=== PATIENT | female | born 1980 | race Caucasian/White ===

== ENCOUNTER 2016-11-03 05:24 | Inpatient (IN) | payer BC, MEDICAID, SELFPAY ==
[~2016-11-03] VITALS: Ht 170.2 cm; Wt 92.8 kg
[2016-11-03] MEDS ORDERED: ONDANSETRON 2MG/ML, 2ML IVPush ONE (05:30)
[2016-11-03] MEDS ORDERED: SODIUM CHLORIDE 0.9% 1,000ML IVBOLUS ONE (05:30)
[2016-11-03] MEDS ORDERED: FAMOTIDINE 20 MG/2 ML IVP ONE (05:30)
[2016-11-03] MEDS ORDERED: SODIUM CHLORIDE FLUSH 10ML SYR IVF ONE (05:30)
[2016-11-03] MEDS ORDERED: ONDANSETRON 2MG/ML, 2ML ONE (05:40)
[2016-11-03] MEDS ORDERED: FAMOTIDINE 20 MG/2 ML ONE (05:40)
[2016-11-03] MEDS ORDERED: LORazepam 2 MG/ML, 1ML ONE (05:58)
[2016-11-03] MEDS ORDERED: PLEASE ENTER ALLERGIES MC SCH ×2 (06:00)
[2016-11-03 06:10] LABS: ASPARTATE AMINO TRANSFERASE 35 U/L (15-37); BLOOD UREA NITROGEN 12 mg/dL (7-18)
[2016-11-03] MEDS ORDERED: MORPHINE SULFATE 4 MG/ML, 1ML ONE ×3 (06:27→08:57)
[2016-11-03] MEDS: MORPHINE SULFATE 4 MG/ML, 1ML IVPush PRN ×2 (06:33→07:07)
[2016-11-03] MEDS ORDERED: SODIUM CHLORIDE 0.9% 1,000 ML IV ONE (06:37)
[2016-11-03] MEDS ORDERED: SODIUM CHLORIDE FLUSH 10ML SYR IVF PRN (07:00)
[2016-11-03] MEDS ORDERED: HYDROmorphone 1 MG/ML, 1ML IVPush ONE (07:30)
[2016-11-03] MEDS ORDERED: HYDROmorphone 1 MG/ML, 1ML ONE (07:32)
[2016-11-03] MEDS: morphine SULFATE 10 MG/ML, 1ML IVPush PRN (08:59)
[2016-11-03] MEDS ORDERED: ACETAMINOPHEN 325 MG TABLET PO PRN (10:30)
[2016-11-03] MEDS ORDERED: POLYETHYLENE GLYCOL 17 GM PACKET PO PRN (10:30)
[2016-11-03] MEDS ORDERED: POTASSIUM CHLORIDE 40 MEQ in SODIUM CHLORIDE 0.9% 500 ML IV ONE (10:30)
[2016-11-03] MEDS ORDERED: DOCUSATE 100 MG CAPSULE PO PRN (10:30)
[2016-11-03] MEDS ORDERED: BISACODYL 10 MG SUPP PR PRN (10:30)
[2016-11-03] MEDS: PROMETHAZINE 25 MG/ML, 1ML IM PRN ×4 (10:52→21:31)
[2016-11-03] MEDS: HEPARIN 5,000 UNITS/ML, 1ML SQ SCH ×2 (11:14→20:19)
[2016-11-03] MEDS: NS + 20MEQ KCL 1,000 ML IV SCH ×2 (11:14→16:05)
[2016-11-03] MEDS ORDERED: POTASSIUM PHOSPHATE 44 MEQ in SODIUM CHLORIDE 0.9% 500 ML IV ONE (12:00)
[2016-11-03] MEDS ORDERED: MAGNESIUM SULFATE PMX 2GM/50ML 50 ML IV ONE (12:00)
[2016-11-03] MEDS: KETOROLAC 30 MG/1 ML IVPush PRN ×2 (12:57→19:38)
[2016-11-03 14:04] VITALS: BP 139/89
[2016-11-03] MEDS: ONDANSETRON 2MG/ML, 2ML IVPush PRN (15:43)
[2016-11-03 19:00] VITALS: BP 114/85
[2016-11-03] MEDS: NICOTINE 14MG/24 HR PATCH.TD24 TD SCH (20:18)
[2016-11-04 01:05] VITALS: BP 127/87
[2016-11-04] MEDS: ONDANSETRON 2MG/ML, 2ML IVPush PRN ×3 (01:08→17:50)
[2016-11-04] MEDS: HEPARIN 5,000 UNITS/ML, 1ML SQ SCH ×3 (04:47→17:16)
[2016-11-04] MEDS: KETOROLAC 30 MG/1 ML IVPush PRN ×4 (04:47→21:48)
[2016-11-04 05:21] LABS: ASPARTATE AMINO TRANSFERASE 23 U/L (15-37); BLOOD UREA NITROGEN 14 mg/dL (7-18)
[2016-11-04 07:40] VITALS: BP 117/80
[2016-11-04] MEDS: SODIUM CHLORIDE 0.9% 1,000 ML IV SCH (12:02)
[2016-11-04 14:39] VITALS: BP 127/90
[2016-11-04] MEDS: morphine SULFATE 10 MG/ML, 1ML IVPush PRN (17:46)
[2016-11-04 19:31] VITALS: BP 123/75
[2016-11-04] MEDS: NICOTINE 14MG/24 HR PATCH.TD24 TD SCH (20:30)
[2016-11-04] MEDS: PROMETHAZINE 25 MG/ML, 1ML IM PRN (21:07)
[2016-11-05 01:26] VITALS: BP 122/84
[2016-11-05] MEDS: morphine SULFATE 10 MG/ML, 1ML IVPush PRN ×4 (01:56→19:58)
[2016-11-05] MEDS: SODIUM CHLORIDE 0.9% 1,000 ML IV SCH ×5 (03:28→22:36)
[2016-11-05] MEDS: HEPARIN 5,000 UNITS/ML, 1ML SQ SCH ×3 (03:28→19:00)
[2016-11-05] MEDS: KETOROLAC 30 MG/1 ML IVPush PRN ×3 (03:28→22:37)
[2016-11-05] MEDS: PROMETHAZINE 25 MG/ML, 1ML IM PRN ×2 (05:33→10:12)
[2016-11-05 06:08] VITALS: BP 132/84
[2016-11-05] MEDS: ONDANSETRON 2MG/ML, 2ML IVPush PRN ×3 (06:14→19:55)
[2016-11-05 08:36] VITALS: BP 135/92
[2016-11-05 15:10] VITALS: BP 131/91
[2016-11-05 19:53] VITALS: BP 113/80
[2016-11-05] MEDS: NICOTINE 14MG/24 HR PATCH.TD24 TD SCH (22:38)
[2016-11-06] MEDS: PROMETHAZINE 25 MG/ML, 1ML IM PRN (00:48)
[2016-11-06] MEDS: morphine SULFATE 10 MG/ML, 1ML IVPush PRN ×3 (01:39→10:42)
[2016-11-06] MEDS: ONDANSETRON 2MG/ML, 2ML IVPush PRN ×2 (01:41→10:41)
[2016-11-06] MEDS: HEPARIN 5,000 UNITS/ML, 1ML SQ SCH ×3 (03:00→13:41)
[2016-11-06 03:45] VITALS: BP 101/66
[2016-11-06] MEDS: SODIUM CHLORIDE 0.9% 1,000 ML IV SCH ×3 (05:43→21:43)
[2016-11-06 05:57] LABS: ASPARTATE AMINO TRANSFERASE 19 U/L (15-37); BLOOD UREA NITROGEN 15 mg/dL (7-18)
[2016-11-06 09:33] VITALS: BP 136/95
[2016-11-06 15:55] VITALS: BP 121/85
[2016-11-06 20:02] VITALS: BP 103/74
[2016-11-06] MEDS: NICOTINE 14MG/24 HR PATCH.TD24 TD SCH (20:11)
[2016-11-07] MEDS: HEPARIN 5,000 UNITS/ML, 1ML SQ SCH ×3 (02:07→18:40)
[2016-11-07 02:15] VITALS: BP 118/85
[2016-11-07] MEDS: SODIUM CHLORIDE 0.9% 1,000 ML IV SCH ×2 (05:07→12:55)
[2016-11-07 07:10] VITALS: BP 122/84
[2016-11-07] MEDS: ONDANSETRON 2MG/ML, 2ML IVPush PRN (07:45)
[2016-11-07] MEDS: morphine SULFATE 10 MG/ML, 1ML IVPush PRN (07:46)
[2016-11-07] MEDS: PROMETHAZINE 25 MG/ML, 1ML IM PRN (09:26)
[2016-11-07 14:31] VITALS: BP 113/76
== END 2016-11-07 19:40 | disposition left against medical advice (07) | DRG 440 ==
LOC: ED 05:58 → EDIP 06:37 → 3NW 07:48 → 4NOR 11-05 05:49
PROVIDERS: ADMIT Family Medicine; ATTEND Family Medicine
DX: K85.20 Alcohol induced acute pancreatitis without necrosis or infection (principal); F17.210 Nicotine dependence, cigarettes, uncomplicated; E87.6 Hypokalemia; Z88.1 Allergy status to other antibiotic agents; F10.20 Alcohol dependence, uncomplicated
CPT/HCPCS: 36415; 76700; 80053; 80061; 80307; 81001; 82607; 82746; 83690; 83735; 84100; 84443; 84703; 85025; 96361; 96374; 96375; 96376; J1170; J1644; J1885; J2405; J2550; J3480; J2270; J3475; J7030; J7040; S0028

== ENCOUNTER 2016-11-24 20:17 | Emergency (ER) | payer SELFPAY ==
[~2016-11-24] VITALS: Ht 167.6 cm; Wt 88.0 kg
[2016-11-24] MEDS ORDERED: SODIUM CHLORIDE 0.9% 1,000ML IVBOLUS ONE (20:30)
[2016-11-24] MEDS ORDERED: ONDANSETRON 2MG/ML, 2ML IVPush ONE (20:30)
[2016-11-24] MEDS ORDERED: SODIUM CHLORIDE FLUSH 10ML SYR IVF ONE (20:30)
[2016-11-24 20:49] LABS: BLOOD UREA NITROGEN 9 mg/dL (7-18)
[2016-11-24] MEDS ORDERED: ONDANSETRON 2MG/ML, 2ML ONE (20:51)
[2016-11-24 20:55] LABS: ASPARTATE AMINO TRANSFERASE 29 U/L (15-37)
[2016-11-24] MEDS ORDERED: MAALOX/HYOSCYAMINE/LIDOCAINE 45 ML BOTTLE ONE (21:12)
[2016-11-24] MEDS ORDERED: MORPHINE SULFATE 4 MG/ML, 1ML ONE (21:12)
[2016-11-24] MEDS ORDERED: KETOROLAC 30 MG/1 ML ONE (21:20)
[2016-11-24] MEDS ORDERED: MAALOX/HYOSCYAMINE/LIDOCAINE 45 ML BOTTLE PO ONE (21:30)
[2016-11-24] MEDS ORDERED: MORPHINE SULFATE 4 MG/ML, 1ML IVPush PRN (21:30)
[2016-11-24] MEDS ORDERED: KETOROLAC 30 MG/1 ML IM ONE (21:30)
[2016-11-24 21:52] VITALS: BP 125/85
== END 2016-11-24 21:57 | disposition home or self-care (01) ==
LOC: ED 21:00
DX: K29.20 Alcoholic gastritis without bleeding (principal)
CPT/HCPCS: 36415; 80053; 83690; 84703; 85025; 85610; 96361; 96372; 96374; 99284; J1885; J2405; J7030

== ENCOUNTER 2016-12-31 13:36 | Inpatient (IN) | payer OTHER ==
[~2016-12-31] VITALS: Ht 167.6 cm; Wt 88.7 kg
[2016-12-31] MEDS ORDERED: HYDROmorphone 1 MG/ML, 1ML ONE ×2 (15:42→16:21)
[2016-12-31] MEDS ORDERED: ONDANSETRON 2MG/ML, 2ML ONE (15:42)
[2016-12-31] MEDS ORDERED: FAMOTIDINE 20 MG/2 ML ONE (15:42)
[2016-12-31] MEDS: HYDROmorphone 1 MG/ML, 1ML IVPush PRN ×2 (15:43→16:22)
[2016-12-31 16:00] LABS: HEMATOCRIT 41.4 % (34.6-47.8); HEMOGLOBIN 13.8 g/dL (11.7-16.4)
[2016-12-31] MEDS ORDERED: ONDANSETRON 2MG/ML, 2ML IVPush ONE (16:00)
[2016-12-31] MEDS ORDERED: FAMOTIDINE 20 MG/2 ML IVP ONE (16:00)
[2016-12-31] MEDS ORDERED: SODIUM CHLORIDE 0.9% 1,000ML IVBOLUS ONE (16:00)
[2016-12-31] MEDS ORDERED: SODIUM CHLORIDE FLUSH 10ML SYR IVF ONE (16:00)
[2016-12-31 16:13] LABS: ASPARTATE AMINO TRANSFERASE 33 U/L (15-37); BLOOD UREA NITROGEN 14 mg/dL (7-18)
[2016-12-31 16:29] LABS: DIFF TOTAL CELLS COUNTED 100 CELL DIFF
[2016-12-31 16:32] LABS: VERIFY COUNTS? YES
[2016-12-31] MEDS ORDERED: LABETALOL 5MG/ML, 20ML IVPush PRN (17:30)
[2016-12-31] MEDS ORDERED: ENALAPRILAT 1.25 MG/ML, 2ML IVPush PRN (17:30)
[2016-12-31] MEDS ORDERED: ENOXAPARIN 40 MG/0.4 ML ONE (18:02)
[2016-12-31] MEDS: ENOXAPARIN 40 MG/0.4 ML SQ SCH (18:03)
[2016-12-31] MEDS ORDERED: OMNIPAQUE 350 MG/ML, 100ML BOTTLE ONE (18:41)
[2016-12-31] MEDS: morphine SULFATE 10 MG/ML, 1ML IVPush PRN ×2 (18:51→22:34)
[2016-12-31] MEDS: PROMETHAZINE 25 MG SUPP PR PRN (18:51)
[2016-12-31] MEDS: NICOTINE 7 MG/24 HR PATCH.TD24 TD SCH (20:05)
[2016-12-31] MEDS: SODIUM CHLORIDE 0.9% 1,000 ML IV SCH (20:05)
[2016-12-31 20:11] VITALS: BP_SYST 137
[2016-12-31] MEDS: HYDROmorphone 2 MG/ML, 1ML IVPush PRN (21:02)
[2016-12-31] MEDS: ONDANSETRON 2MG/ML, 2ML IVPush PRN (22:34)
[2017-01-01] MEDS: HYDROmorphone 2 MG/ML, 1ML IVPush PRN ×6 (00:15→23:11)
[2017-01-01] MEDS: SODIUM CHLORIDE 0.9% 1,000 ML IV SCH ×5 (00:26→20:43)
[2017-01-01 00:38] VITALS: BP 146/85
[2017-01-01] MEDS: morphine SULFATE 10 MG/ML, 1ML IVPush PRN ×5 (01:30→20:42)
[2017-01-01] MEDS: LORazepam 2 MG/ML, 1ML IVPush PRN ×2 (01:30→05:45)
[2017-01-01] MEDS: PROMETHAZINE 25 MG SUPP PR PRN (03:06)
[2017-01-01 05:35] LABS: HEMATOCRIT 38.7 % (34.6-47.8); HEMOGLOBIN 12.9 g/dL (11.7-16.4); WHITE BLOOD COUNT 13.7 x10^3/uL (3.4-10)
[2017-01-01 05:51] LABS: ASPARTATE AMINO TRANSFERASE 18 U/L (15-37); BLOOD UREA NITROGEN 11 mg/dL (7-18)
[2017-01-01 06:22] LABS: DIFF TOTAL CELLS COUNTED 100 CELL DIFF
[2017-01-01 06:28] LABS: VERIFY COUNTS? YES
[2017-01-01 07:35] VITALS: BP 137/91
[2017-01-01] MEDS ORDERED: MORPHINE SULFATE 4 MG/ML, 1ML ONE ×2 (09:21→15:35)
[2017-01-01] MEDS ORDERED: MAGNESIUM SULFATE PMX 2GM/50ML 50 ML IV ONE (09:30)
[2017-01-01] MEDS: ONDANSETRON 2MG/ML, 2ML IVPush PRN ×2 (11:32→20:42)
[2017-01-01 12:32] VITALS: BP 125/83
[2017-01-01] MEDS: ENOXAPARIN 40 MG/0.4 ML SQ SCH (17:39)
[2017-01-01] MEDS: NICOTINE 7 MG/24 HR PATCH.TD24 TD SCH (17:39)
[2017-01-01 19:57] VITALS: BP 118/80
[2017-01-02 01:45] VITALS: BP 124/87
[2017-01-02] MEDS: SODIUM CHLORIDE 0.9% 1,000 ML IV SCH ×2 (01:47→07:15)
[2017-01-02] MEDS: morphine SULFATE 10 MG/ML, 1ML IVPush PRN ×2 (01:47→05:01)
[2017-01-02 04:36] LABS: HEMATOCRIT 35.3 % (34.6-47.8); HEMOGLOBIN 11.9 g/dL (11.7-16.4); WHITE BLOOD COUNT 12.3 x10^3/uL (3.4-10)
[2017-01-02 04:42] LABS: BLOOD UREA NITROGEN 7 mg/dL (7-18)
[2017-01-02 04:45] LABS: ASPARTATE AMINO TRANSFERASE 16 U/L (15-37)
[2017-01-02] MEDS: ONDANSETRON 2MG/ML, 2ML IVPush PRN ×3 (05:01→17:12)
[2017-01-02 08:00] VITALS: BP 134/87
[2017-01-02] MEDS: HYDROmorphone 2 MG/ML, 1ML IVPush PRN ×5 (08:41→21:53)
[2017-01-02] MEDS ORDERED: CALCIUM GLUCONATE 9.2 MEQ in SODIUM CHLORIDE 0.9% 100 ML IV ONE (10:00)
[2017-01-02] MEDS: LACTATED RINGERS 1,000 ML IV SCH ×3 (11:16→23:56)
[2017-01-02 12:37] VITALS: BP 134/84
[2017-01-02] MEDS: NICOTINE 7 MG/24 HR PATCH.TD24 TD SCH (17:13)
[2017-01-02] MEDS: ENOXAPARIN 40 MG/0.4 ML SQ SCH (17:13)
[2017-01-02 18:46] VITALS: BP 122/83
[2017-01-02] MEDS: PROMETHAZINE 25 MG SUPP PR PRN (21:53)
[2017-01-03] MEDS: HYDROmorphone 2 MG/ML, 1ML IVPush PRN ×3 (01:02→08:09)
[2017-01-03 02:00] VITALS: BP 133/81
[2017-01-03] MEDS: ONDANSETRON 2MG/ML, 2ML IVPush PRN ×3 (04:39→20:29)
[2017-01-03 05:40] LABS: HEMATOCRIT 33.6 % (34.6-47.8); HEMOGLOBIN 11.5 g/dL (11.7-16.4); WHITE BLOOD COUNT 12.4 x10^3/uL (3.4-10)
[2017-01-03 06:11] LABS: ASPARTATE AMINO TRANSFERASE 20 U/L (15-37); BLOOD UREA NITROGEN 4 mg/dL (7-18)
[2017-01-03] MEDS: LACTATED RINGERS 1,000 ML IV SCH ×3 (06:27→20:24)
[2017-01-03 07:08] VITALS: BP 115/78
[2017-01-03] MEDS: morphine SULFATE 10 MG/ML, 1ML IVPush PRN ×4 (11:35→21:15)
[2017-01-03 12:15] VITALS: BP 128/78
[2017-01-03] MEDS: ENOXAPARIN 40 MG/0.4 ML SQ SCH (17:48)
[2017-01-03] MEDS: NICOTINE 7 MG/24 HR PATCH.TD24 TD SCH (17:48)
[2017-01-03 20:00] VITALS: BP 123/82
[2017-01-03] MEDS: PROMETHAZINE 25 MG SUPP PR PRN (22:05)
[2017-01-03] MEDS: KETOROLAC 30 MG/1 ML IVPush PRN (22:18)
[2017-01-03] MEDS ORDERED: LORazepam 2 MG/ML, 1ML IVPush ONE (23:30)
[2017-01-04] MEDS: morphine SULFATE 10 MG/ML, 1ML IVPush PRN ×5 (01:12→23:12)
[2017-01-04 02:00] VITALS: BP 122/85
[2017-01-04] MEDS: ONDANSETRON 2MG/ML, 2ML IVPush PRN ×3 (05:11→23:12)
[2017-01-04 05:43] LABS: BLOOD UREA NITROGEN 2 mg/dL (7-18)
[2017-01-04 05:46] LABS: ASPARTATE AMINO TRANSFERASE 15 U/L (15-37)
[2017-01-04] MEDS: LACTATED RINGERS 1,000 ML IV SCH ×2 (06:43→22:01)
[2017-01-04 06:47] VITALS: BP 119/80
[2017-01-04] MEDS ORDERED: MAGNESIUM SULFATE PMX 2GM/50ML 50 ML IV ONE (08:00)
[2017-01-04] MEDS: POTASSIUM CHLORIDE 20 MEQ TAB.ER.PRT PO SCH ×2 (08:30→18:16)
[2017-01-04] MEDS: OXYcodone/APAP 5/325MG TABLET PO PRN ×2 (11:35→18:42)
[2017-01-04 12:11] VITALS: BP 121/85
[2017-01-04] MEDS: ENOXAPARIN 40 MG/0.4 ML SQ SCH (18:17)
[2017-01-04] MEDS: NICOTINE 7 MG/24 HR PATCH.TD24 TD SCH (18:17)
[2017-01-04 20:11] VITALS: BP 105/82
[2017-01-05] MEDS: OXYcodone/APAP 5/325MG TABLET PO PRN ×3 (01:46→17:36)
[2017-01-05] MEDS: KETOROLAC 30 MG/1 ML IVPush PRN (03:00)
[2017-01-05] MEDS: morphine SULFATE 10 MG/ML, 1ML IVPush PRN ×3 (03:31→21:09)
[2017-01-05 08:19] LABS: ASPARTATE AMINO TRANSFERASE 197 U/L (15-37); BLOOD UREA NITROGEN 2 mg/dL (7-18)
[2017-01-05] MEDS: LACTATED RINGERS 1,000 ML IV SCH ×2 (08:20→18:38)
[2017-01-05 08:25] LABS: HEMATOCRIT 31.9 % (34.6-47.8); HEMOGLOBIN 10.7 g/dL (11.7-16.4); WHITE BLOOD COUNT 8.5 x10^3/uL (3.4-10)
[2017-01-05] MEDS: ONDANSETRON 2MG/ML, 2ML IVPush PRN ×2 (10:04→17:38)
[2017-01-05 12:33] VITALS: BP 132/94
[2017-01-05] MEDS: ENOXAPARIN 40 MG/0.4 ML SQ SCH (17:39)
[2017-01-05] MEDS: NICOTINE 7 MG/24 HR PATCH.TD24 TD SCH (17:39)
[2017-01-05 21:09] VITALS: BP 147/79
[2017-01-05] MEDS: PROMETHAZINE 25 MG SUPP PR PRN (21:09)
[2017-01-06 02:00] VITALS: BP 115/80
[2017-01-06] MEDS: OXYcodone/APAP 5/325MG TABLET PO PRN (02:43)
[2017-01-06] MEDS: ONDANSETRON 2MG/ML, 2ML IVPush PRN ×2 (02:43→11:15)
[2017-01-06] MEDS: LACTATED RINGERS 1,000 ML IV SCH (04:41)
[2017-01-06 05:27] LABS: BLOOD UREA NITROGEN 4 mg/dL (7-18)
[2017-01-06 05:31] LABS: ASPARTATE AMINO TRANSFERASE 268 U/L (15-37)
[2017-01-06 07:10] VITALS: BP 125/84
[2017-01-06] MEDS ORDERED: ONDA4TAB10 PO (13:33)
== END 2017-01-06 13:35 | disposition home or self-care (01) | DRG 438 ==
LOC: ED 16:10 → EDIP 16:21 → 4EST 18:41 → DCLOUNGE 01-06 13:17
PROVIDERS: ADMIT Internal Medicine; ATTEND Hospitalist
DX: K85.20 Alcohol induced acute pancreatitis without necrosis or infection (principal); E43 Unspecified severe protein-calorie malnutrition; D64.9 Anemia, unspecified; E83.51 Hypocalcemia; K86.1 Other chronic pancreatitis; E86.9 Volume depletion, unspecified; F17.200 Nicotine dependence, unspecified, uncomplicated; Z68.31 Body mass index [BMI] 31.0-31.9, adult; Z88.8 Allergy status to other drugs, medicaments and biological substances
CPT/HCPCS: 36415; 74176; 74177; 74181; 80053; 80307; 81001; 83690; 83735; 84100; 84478; 85025; 85610; 86704; 86706; 86708; 86803; 87086; 87324; 87340; 96374; 96375; 96376; J0610; J1170; J1650; J1885; J2405; Q9967; J2060; J2270; J3475; J7030; J7120; S0028

== ENCOUNTER 2017-09-25 17:46 | Inpatient (IN) | payer MEDICAID ==
[~2017-09-25] VITALS: Ht 170.2 cm; Wt 84.9 kg
[2017-09-25] MEDS: MORPHINE SULFATE 4 MG/ML, 1ML IVPush PRN ×3 (11:11→19:01)
[~2017-09-25 17:46] MED LIST: ONDA4TAB10 PO
[2017-09-25] MEDS ORDERED: ONDANSETRON ODT 4 MG ONE ×2 (18:56→21:48)
[2017-09-25] MEDS ORDERED: FAMOTIDINE 20 MG/2 ML ONE (18:57)
[2017-09-25] MEDS ORDERED: MORPHINE SULFATE 4 MG/ML, 1ML ONE ×3 (18:57→21:49)
[2017-09-25] MEDS ORDERED: FAMOTIDINE 20 MG/2 ML IVP ONE (19:00)
[2017-09-25] MEDS ORDERED: SODIUM CHLORIDE 0.9% 1,000ML IVBOLUS ONE (19:00)
[2017-09-25] MEDS ORDERED: ONDANSETRON ODT 4 MG PO ONE ×2 (19:00→22:00)
[2017-09-25] MEDS ORDERED: SODIUM CHLORIDE FLUSH 10ML SYR IVF ONE (19:00)
[2017-09-25 19:07] LABS: BASOPHILS # (AUTO) 0.02 x10^3/uL (0-0.1); BASOPHILS % (AUTO) 0 % (0-1); EOSINOPHILS % (AUTO) 0 % (1-7); LYMPHOCYTES # (AUTO) 1.08 x10^3/uL (1-3.4); LYMPHOCYTES % (AUTO) 11 % (22-44); MD NO; MEAN CORPUSCULAR HEMOGLOBIN 36.4 pg (27.0-34.8); MEAN CORPUSCULAR HGB CONC 34.2 g/dL (32.4-35.8); MEAN CORPUSCULAR VOLUME 106.5 fL (80-100); MEAN PLATELET VOLUME 8.2 fL (7.4-10.4); MONOCYTES # (AUTO) 0.56 x10^3/uL (0.2-0.8); MONOCYTES % (AUTO) 5 % (2-9); NEUTROPHILS # (AUTO) 8.61 x10^3/uL (1.8-6.8); NEUTROPHILS % (AUTO) 84 % (42-75); PLATELET COUNT 316 x10^3/uL (130-400); RED CELL DISTRIBUTION WIDTH 14.8 % (9.6-15.2)
[2017-09-25 19:14] LABS: ALANINE AMINOTRANSFERASE 27 U/L (12-78); ALBUMIN 3.4 g/dL (3.4-5.0); ANION GAP 9 mmol/L (5-15); CALCIUM 8.6 mg/dL (8.5-10.1); CHLORIDE 109 mmol/L (98-107); CREATININE 0.62 mg/dL (0.55-1.02)
[2017-09-25 19:19] LABS: ALKALINE PHOSPHATASE 98 U/L (45-117); BILIRUBIN,TOTAL 1.5 mg/dL (0.2-1.0)
[2017-09-25] MEDS ORDERED: MAALOX/HYOSCYAMINE/LIDOCAINE 45 ML BTL ONE (19:53)
[2017-09-25] MEDS ORDERED: MAALOX/HYOSCYAMINE/LIDOCAINE 45 ML BTL PO ONE (20:00)
[2017-09-25] MEDS ORDERED: MORPHINE SULFATE 4 MG/ML, 1ML IVPush PRN (22:00)
[2017-09-25] MEDS ORDERED: ACETAMINOPHEN 325 MG TABLET PO PRN (23:00)
[2017-09-25] MEDS ORDERED: hydrALAzine 20 MG/ML, 1ML IVPush PRN (23:00)
[2017-09-25] MEDS: LACTATED RINGERS 1,000 ML IV SCH (23:06)
[2017-09-25 23:11] VITALS: BP 120/78
[2017-09-26] MEDS ORDERED: PROCHLORPERAZINE 5 MG/ML, 2ML IVPush ONE
[2017-09-26] MEDS ORDERED: NICOTINE 21 MG/24 HR PATCH.TD24 TD ONE
[2017-09-26] MEDS: ENOXAPARIN 40 MG/0.4 ML SQ SCH (00:03)
[2017-09-26 02:00] VITALS: BP 115/66
[2017-09-26] MEDS ORDERED: MORPHINE SULFATE 4 MG/ML, 1ML ONE (02:54)
[2017-09-26] MEDS: morphine SULFATE 10 MG/ML, 1ML IVPush PRN ×2 (02:57→06:31)
[2017-09-26] MEDS: ONDANSETRON ODT 4 MG PO PRN ×4 (02:57→20:59)
[2017-09-26 04:25] LABS: ALANINE AMINOTRANSFERASE 20 U/L (12-78); ALBUMIN 2.7 g/dL (3.4-5.0); ANION GAP 6 mmol/L (5-15); CALCIUM 8.3 mg/dL (8.5-10.1); CHLORIDE 108 mmol/L (98-107)
[2017-09-26 04:28] LABS: ALKALINE PHOSPHATASE 75 U/L (45-117); CREATININE 0.59 mg/dL (0.55-1.02); TOTAL PROTEIN 5.6 g/dL (6.4-8.2)
[2017-09-26 04:29] LABS: BASOPHILS # (AUTO) 0.05 x10^3/uL (0-0.1); BASOPHILS % (AUTO) 1 % (0-1); EOSINOPHILS # (AUTO) 0.09 x10^3/uL (0-0.4); EOSINOPHILS % (AUTO) 1 % (1-7); LYMPHOCYTES # (AUTO) 2.79 x10^3/uL (1-3.4); LYMPHOCYTES % (AUTO) 28 % (22-44); MD NO; MEAN CORPUSCULAR HEMOGLOBIN 36.5 pg (27.0-34.8); MEAN CORPUSCULAR HGB CONC 34.2 g/dL (32.4-35.8); MEAN CORPUSCULAR VOLUME 106.6 fL (80-100); MONOCYTES # (AUTO) 0.81 x10^3/uL (0.2-0.8); MONOCYTES % (AUTO) 8 % (2-9); NEUTROPHILS # (AUTO) 6.26 x10^3/uL (1.8-6.8); NEUTROPHILS % (AUTO) 63 % (42-75); PLATELET COUNT 238 x10^3/uL (130-400); RED BLOOD COUNT 3.45 x10^6/uL (3.82-5.3); RED CELL DISTRIBUTION WIDTH 14.5 % (9.6-15.2)
[2017-09-26] MEDS: LACTATED RINGERS 1,000 ML IV SCH ×3 (06:49→15:45)
[2017-09-26 07:43] VITALS: BP 129/92
[2017-09-26] MEDS: NICOTINE 21 MG/24 HR PATCH.TD24 TD SCH (09:00)
[2017-09-26] MEDS ORDERED: HYDROmorphone 2 MG/ML, 1ML ONE ×5 (09:29→22:15)
[2017-09-26] MEDS: HYDROmorphone 1 MG/ML, 1ML IV PRN ×5 (09:37→18:24)
[2017-09-26] MEDS: PROCHLORPERAZINE 5 MG/ML, 2ML IVPush PRN ×3 (09:37→22:22)
[2017-09-26] MEDS ORDERED: HYDROmorphone 1 MG/ML, 1ML IV ONE (12:00)
[2017-09-26 13:33] VITALS: BP 143/94
[2017-09-26 19:22] VITALS: BP 144/90
[2017-09-26] MEDS: HYDROmorphone 2 MG/ML, 1ML IV PRN (22:22)
[2017-09-27] MEDS: ENOXAPARIN 40 MG/0.4 ML SQ SCH ×2 (00:04→23:11)
[2017-09-27] MEDS: LACTATED RINGERS 1,000 ML IV SCH ×3 (00:04→21:22)
[2017-09-27 01:58] VITALS: BP 116/76
[2017-09-27] MEDS: ONDANSETRON ODT 4 MG PO PRN ×5 (02:44→22:31)
[2017-09-27] MEDS: HYDROmorphone 2 MG/ML, 1ML IV PRN ×5 (02:44→20:14)
[2017-09-27 04:29] LABS: BASOPHILS # (AUTO) 0.08 x10^3/uL (0-0.1); BASOPHILS % (AUTO) 1 % (0-1); EOSINOPHILS # (AUTO) 0.11 x10^3/uL (0-0.4); EOSINOPHILS % (AUTO) 1 % (1-7); LYMPHOCYTES # (AUTO) 1.67 x10^3/uL (1-3.4); LYMPHOCYTES % (AUTO) 17 % (22-44); MD NO; MEAN CORPUSCULAR HEMOGLOBIN 36.5 pg (27.0-34.8); MEAN CORPUSCULAR HGB CONC 34.3 g/dL (32.4-35.8); MEAN CORPUSCULAR VOLUME 106.5 fL (80-100); MEAN PLATELET VOLUME 8.2 fL (7.4-10.4); MONOCYTES # (AUTO) 0.64 x10^3/uL (0.2-0.8); MONOCYTES % (AUTO) 7 % (2-9); NEUTROPHILS # (AUTO) 7.08 x10^3/uL (1.8-6.8); NEUTROPHILS % (AUTO) 74 % (42-75); PLATELET COUNT 213 x10^3/uL (130-400); RED BLOOD COUNT 3.23 x10^6/uL (3.82-5.3); RED CELL DISTRIBUTION WIDTH 14.8 % (9.6-15.2)
[2017-09-27 04:40] LABS: ALBUMIN 2.6 g/dL (3.4-5.0); ANION GAP 8 mmol/L (5-15); CALCIUM 7.8 mg/dL (8.5-10.1); CHLORIDE 108 mmol/L (98-107)
[2017-09-27] MEDS: PROCHLORPERAZINE 5 MG/ML, 2ML IVPush PRN ×3 (04:55→17:23)
[2017-09-27 05:06] LABS: ALANINE AMINOTRANSFERASE 18 U/L (12-78); ALKALINE PHOSPHATASE 71 U/L (45-117); BILIRUBIN,TOTAL 1.2 mg/dL (0.2-1.0); CREATININE 0.39 mg/dL (0.55-1.02); FOLATE LEVEL 11.3 ng/mL (3.1-17.5); TOTAL PROTEIN 5.4 g/dL (6.4-8.2)
[2017-09-27 08:05] VITALS: BP 124/83
[2017-09-27] MEDS ORDERED: POTASSIUM CHLORIDE 40 MEQ in SODIUM CHLORIDE 0.9% 500 ML IV ONE (09:30)
[2017-09-27] MEDS: HYDROcodone/APAP 5/325 TABLET PO PRN ×4 (09:59→22:31)
[2017-09-27] MEDS: NICOTINE 21 MG/24 HR PATCH.TD24 TD SCH (09:59)
[2017-09-27 14:30] VITALS: BP 132/91
[2017-09-27 19:26] VITALS: BP 128/84
[2017-09-28 01:28] VITALS: BP 127/91
[2017-09-28] MEDS: HYDROmorphone 2 MG/ML, 1ML IV PRN ×7 (01:37→22:46)
[2017-09-28] MEDS: PROCHLORPERAZINE 5 MG/ML, 2ML IVPush PRN ×4 (01:37→19:53)
[2017-09-28] MEDS: ONDANSETRON ODT 4 MG PO PRN ×3 (05:20→22:46)
[2017-09-28] MEDS: LACTATED RINGERS 1,000 ML IV SCH ×3 (05:20→23:44)
[2017-09-28 06:29] LABS: CLOSTRIDIUM DIFFICILE ANTIGEN NEGATIVE; CLOSTRIDIUM DIFFICILE TOXIN NEGATIVE (Negative)
[2017-09-28 06:44] LABS: ALBUMIN 2.5 g/dL (3.4-5.0); ANION GAP 10 mmol/L (5-15); CALCIUM 7.6 mg/dL (8.5-10.1); CHLORIDE 106 mmol/L (98-107)
[2017-09-28 06:50] LABS: ALANINE AMINOTRANSFERASE 17 U/L (12-78); ALKALINE PHOSPHATASE 75 U/L (45-117); BILIRUBIN,TOTAL 0.9 mg/dL (0.2-1.0); TOTAL PROTEIN 5.5 g/dL (6.4-8.2)
[2017-09-28 07:36] VITALS: BP 139/95
[2017-09-28] MEDS: NICOTINE 21 MG/24 HR PATCH.TD24 TD SCH (09:38)
[2017-09-28] MEDS: HYDROcodone/APAP 5/325 TABLET PO PRN ×3 (11:38→19:53)
[2017-09-28] MEDS ORDERED: LORazepam 2 MG/ML, 1ML IVPush ONE (12:00)
[2017-09-28] MEDS ORDERED: LORazepam 2 MG/ML, 1ML ONE (12:02)
[2017-09-28 14:15] VITALS: BP 139/102
[2017-09-28 19:52] VITALS: BP 148/99
[2017-09-28] MEDS: ENOXAPARIN 40 MG/0.4 ML SQ SCH (23:44)
[2017-09-29 01:49] VITALS: BP 117/83
[2017-09-29] MEDS: PROCHLORPERAZINE 5 MG/ML, 2ML IVPush PRN ×3 (05:10→20:18)
[2017-09-29] MEDS: HYDROmorphone 2 MG/ML, 1ML IV PRN ×5 (05:10→23:06)
[2017-09-29 08:27] VITALS: BP 120/81
[2017-09-29] MEDS: ONDANSETRON ODT 4 MG PO PRN ×4 (08:50→23:07)
[2017-09-29] MEDS: HYDROcodone/APAP 5/325 TABLET PO PRN ×4 (08:50→21:34)
[2017-09-29] MEDS: NICOTINE 21 MG/24 HR PATCH.TD24 TD SCH (08:51)
[2017-09-29] MEDS: LACTATED RINGERS 1,000 ML IV SCH ×2 (08:52→17:27)
[2017-09-29 14:48] VITALS: BP 111/76
[2017-09-29 19:13] VITALS: BP 134/90
[2017-09-29] MEDS: ENOXAPARIN 40 MG/0.4 ML SQ SCH (23:00)
[2017-09-30] MEDS: HYDROcodone/APAP 5/325 TABLET PO PRN ×3 (02:01→10:33)
[2017-09-30] MEDS: PROCHLORPERAZINE 5 MG/ML, 2ML IVPush PRN ×2 (02:01→09:04)
[2017-09-30] MEDS: LACTATED RINGERS 1,000 ML IV SCH ×2 (02:02→08:59)
[2017-09-30 02:55] VITALS: BP 131/91
[2017-09-30] MEDS: ONDANSETRON ODT 4 MG PO PRN ×2 (03:10→07:19)
[2017-09-30] MEDS: HYDROmorphone 2 MG/ML, 1ML IV PRN ×2 (03:10→07:19)
[2017-09-30 04:58] LABS: BASOPHILS # (AUTO) 0.04 x10^3/uL (0-0.1); BASOPHILS % (AUTO) 1 % (0-1); EOSINOPHILS # (AUTO) 0.17 x10^3/uL (0-0.4); EOSINOPHILS % (AUTO) 2 % (1-7); LYMPHOCYTES # (AUTO) 1.78 x10^3/uL (1-3.4); LYMPHOCYTES % (AUTO) 23 % (22-44); MD NO; MEAN CORPUSCULAR HEMOGLOBIN 35.5 pg (27.0-34.8); MEAN CORPUSCULAR HGB CONC 33.4 g/dL (32.4-35.8); MEAN CORPUSCULAR VOLUME 106.4 fL (80-100); MEAN PLATELET VOLUME 7.9 fL (7.4-10.4); MONOCYTES # (AUTO) 0.75 x10^3/uL (0.2-0.8); MONOCYTES % (AUTO) 10 % (2-9); NEUTROPHILS # (AUTO) 4.98 x10^3/uL (1.8-6.8); NEUTROPHILS % (AUTO) 65 % (42-75); PLATELET COUNT 220 x10^3/uL (130-400); RED CELL DISTRIBUTION WIDTH 14.7 % (9.6-15.2)
[2017-09-30 05:10] LABS: ALANINE AMINOTRANSFERASE 18 U/L (12-78); ALBUMIN 2.3 g/dL (3.4-5.0); ANION GAP 6 mmol/L (5-15); CALCIUM 7.8 mg/dL (8.5-10.1); CHLORIDE 108 mmol/L (98-107); CREATININE 0.38 mg/dL (0.55-1.02)
[2017-09-30 05:12] LABS: ALKALINE PHOSPHATASE 74 U/L (45-117); BILIRUBIN,TOTAL 0.4 mg/dL (0.2-1.0); TOTAL PROTEIN 5.2 g/dL (6.4-8.2)
[2017-09-30] MEDS: NICOTINE 21 MG/24 HR PATCH.TD24 TD SCH (08:58)
[2017-09-30] MEDS ORDERED: THIAMINE 100MG TABLET PO SCH (09:00)
[2017-09-30] MEDS ORDERED: FOLIC ACID 1 MG TABLET PO SCH (09:00)
[2017-09-30] MEDS ORDERED: MULTIVITAMIN 1 TABLET PO SCH (09:00)
[2017-09-30 10:12] VITALS: BP 124/85
[2017-09-30] MEDS ORDERED: ONDA4TAB12 PO (10:23)
[2017-09-30] MEDS ORDERED: HYDR-883 PO (10:29)
== END 2017-09-30 11:35 | disposition home or self-care (01) | DRG 440 ==
LOC: ED 20:09 → EDIP 21:51 → 3NW 22:48 → DCLOUNGE 09-30 11:24
PROVIDERS: ADMIT Hospitalist; ATTEND Hospitalist
DX: K85.90 Acute pancreatitis without necrosis or infection, unspecified (principal); D75.89 Other specified diseases of blood and blood-forming organs; F10.21 Alcohol dependence, in remission; F12.10 Cannabis abuse, uncomplicated; K86.0 Alcohol-induced chronic pancreatitis; F17.210 Nicotine dependence, cigarettes, uncomplicated; F32.9 Major depressive disorder, single episode, unspecified; Z80.0 Family history of malignant neoplasm of digestive organs; Z80.52 Family history of malignant neoplasm of bladder; Z80.6 Family history of leukemia; Z82.49 Family history of ischemic heart disease and other diseases of the circulatory system; Z87.81 Personal history of (healed) traumatic fracture; Z88.2 Allergy status to sulfonamides; Z88.8 Allergy status to other drugs, medicaments and biological substances
CPT/HCPCS: 36415; 74177; 74181; 76700; 80053; 82607; 82746; 83690; 83735; 84100; 84703; 85025; 86301; 87324; 93005; J1170; J1650; J3480; Q0162; J0780; J2060; J2270; J7030; J7040; J7120; S0028

== ENCOUNTER 2017-10-13 13:47 | Emergency (ER) | payer MEDICAID ==
[~2017-10-13] VITALS: Ht 167.6 cm; Wt 80.7 kg
[~2017-10-13 13:47] MED LIST changes: +HYDR-883 PO; +ONDA4TAB12 PO
[2017-10-13] MEDS ORDERED: ONDANSETRON ODT 4 MG PO ONE (14:30)
[2017-10-13] MEDS ORDERED: MAALOX/HYOSCYAMINE/LIDOCAINE 45 ML BTL PO ONE (14:30)
[2017-10-13 14:34] LABS: BASOPHILS # (AUTO) 0.06 x10^3/uL (0-0.1); BASOPHILS % (AUTO) 1 % (0-1); EOSINOPHILS # (AUTO) 0.21 x10^3/uL (0-0.4); EOSINOPHILS % (AUTO) 2 % (1-7); LYMPHOCYTES # (AUTO) 2.03 x10^3/uL (1-3.4); LYMPHOCYTES % (AUTO) 22 % (22-44); MD NO; MEAN CORPUSCULAR HEMOGLOBIN 36.1 pg (27.0-34.8); MEAN CORPUSCULAR HGB CONC 34.1 g/dL (32.4-35.8); MEAN CORPUSCULAR VOLUME 105.7 fL (80-100); MEAN PLATELET VOLUME 8.1 fL (7.4-10.4); MONOCYTES % (AUTO) 6 % (2-9); NEUTROPHILS # (AUTO) 6.45 x10^3/uL (1.8-6.8); NEUTROPHILS % (AUTO) 69 % (42-75); PLATELET COUNT 303 x10^3/uL (130-400); RED BLOOD COUNT 4.13 x10^6/uL (3.82-5.3); RED CELL DISTRIBUTION WIDTH 14.1 % (9.6-15.2)
[2017-10-13 14:42] LABS: ALANINE AMINOTRANSFERASE 46 U/L (12-78); ALBUMIN 3.6 g/dL (3.4-5.0); ANION GAP 9 mmol/L (5-15); CALCIUM 8.7 mg/dL (8.5-10.1); CHLORIDE 108 mmol/L (98-107); CREATININE 0.63 mg/dL (0.55-1.02)
[2017-10-13 14:47] LABS: ALKALINE PHOSPHATASE 101 U/L (45-117); BILIRUBIN,TOTAL 0.7 mg/dL (0.2-1.0); TOTAL PROTEIN 7.6 g/dL (6.4-8.2); TROPONIN I < 0.015 ng/mL (0.000-0.045)
[2017-10-13] MEDS ORDERED: MAALOX/HYOSCYAMINE/LIDOCAINE 45 ML BTL ONE (16:55)
[2017-10-13] MEDS ORDERED: ONDANSETRON ODT 4 MG ONE (16:55)
[2017-10-13 17:51] VITALS: BP 135/89
== END 2017-10-13 17:53 | disposition home or self-care (01) ==
LOC: ED 17:47
DX: R10.13 Epigastric pain (principal); R07.89 Other chest pain; F17.200 Nicotine dependence, unspecified, uncomplicated
CPT/HCPCS: 36415; 80053; 83690; 84484; 85025; 93005; 99285; Q0162

== ENCOUNTER 2018-02-26 10:37 | Emergency (ER) | payer MEDICAID ==
[~2018-02-26] VITALS: Ht 170.2 cm; Wt 79.0 kg
[~2018-02-26 10:37] MED LIST changes: +HYDR-3652 PO; -HYDR-883 PO
[2018-02-26 11:18] VITALS: BP 127/95
[2018-02-26 12:01] LABS: ALANINE AMINOTRANSFERASE 28 U/L (12-78); ALBUMIN 4.5 g/dL (3.4-5.0); ANION GAP 6 mmol/L (5-15); BASOPHILS # (AUTO) 0.01 x10^3/uL (0-0.1); BASOPHILS % (AUTO) 0 % (0-1); CALCIUM 10.1 mg/dL (8.5-10.1); CHLORIDE 103 mmol/L (98-107); CREATININE 0.71 mg/dL (0.55-1.02); EOSINOPHILS # (AUTO) 0.03 x10^3/uL (0-0.4); EOSINOPHILS % (AUTO) 0 % (1-7); LYMPHOCYTES % (AUTO) 11 % (22-44); MD NO; MEAN CORPUSCULAR HEMOGLOBIN 34.7 pg (27.0-34.8); MEAN CORPUSCULAR VOLUME 105.2 fL (80-100); MEAN PLATELET VOLUME 8.2 fL (7.4-10.4); MONOCYTES # (AUTO) 0.55 x10^3/uL (0.2-0.8); MONOCYTES % (AUTO) 4 % (2-9); NEUTROPHILS # (AUTO) 11.32 x10^3/uL (1.8-6.8); NEUTROPHILS % (AUTO) 84 % (42-75); PLATELET COUNT 363 x10^3/uL (130-400); RED BLOOD COUNT 4.82 x10^6/uL (3.82-5.3); RED CELL DISTRIBUTION WIDTH 13.6 % (9.6-15.2)
[2018-02-26 12:03] LABS: ALKALINE PHOSPHATASE 100 U/L (45-117); BILIRUBIN,TOTAL 1.2 mg/dL (0.2-1.0); TOTAL PROTEIN 9.5 g/dL (6.4-8.2)
[2018-02-26] MEDS ORDERED: SODIUM CHLORIDE FLUSH 10ML SYR IVF ONE (12:30)
[2018-02-26] MEDS ORDERED: ONDANSETRON 2MG/ML, 2ML IVPush ONE (12:30)
[2018-02-26] MEDS ORDERED: ONDANSETRON 2MG/ML, 2ML ONE (12:52)
[2018-02-26] MEDS ORDERED: HYDROmorphone 2 MG/ML, 1ML ONE ×2 (12:53→14:50)
[2018-02-26] MEDS: HYDROmorphone 2 MG/ML, 1ML IVPush PRN ×2 (12:56→14:58)
[2018-02-26 13:14] LABS: HCG UR SG 1.034 (1.003-1.030)
[2018-02-26 13:21] LABS: CULTURE INDICATED? YES; MICROSCOPIC INDICATED
[2018-02-26] MEDS ORDERED: OMNIPAQUE 350 MG/ML, 100ML BOTTLE ONE (14:03)
[2018-02-26] MEDS ORDERED: PROMETHAZINE 25 MG/ML, 1ML ONE (14:50)
[2018-02-26] MEDS ORDERED: PROMETHAZINE 25 MG/ML, 1ML IM ONE (15:00)
== END 2018-02-26 15:57 | disposition home or self-care (01) ==
LOC: ED 12:50
DX: N30.00 Acute cystitis without hematuria (principal); K86.1 Other chronic pancreatitis; F17.200 Nicotine dependence, unspecified, uncomplicated
CPT/HCPCS: 36415; 74177; 80053; 81001; 81025; 83690; 85025; 87077; 87086; 87147; 96372; 96374; 96375; 96376; 99285; J1170; J2405; J2550; Q9967